=== PATIENT | male | born 1945 | race Caucasian/White ===

== ENCOUNTER 2018-06-23 06:42 | Day surgery (SDC) | payer OTHER ==
[2018-06-22 09:44] VITALS: BMI 34.1
[2018-06-23 09:03] VITALS: TEMP 98.2
[2018-06-23 09:34] VITALS: BP 136/78; PULSE 66
--- NOTE | 2018-06-26 17:49 | PATH ---
Surgical Pathology Report Patient Name: CYDNEY SANTA [facility]. Rec. #: [id number] /Age/Gender: 1945 (Age: 72) / M Account: [id number] Location: ASU-ENDOSCOPY Taken: 06/23/2018 Received: 06/23/2018 Reported: 06/26/2018 Physicians: Estiven Mejia M.D. Specimen(s) Received A: POLYP SIGMOID B: BX RIGHT COLON POLYP C: BX CECUM POLYP Clinical History Colon screening Postoperative diagnosis: Colon polyps, diverticulosis Final Diagnosis A. SIGMOID COLON, POLYPS, POLYPECTOMY: TUBULOVILLOUS ADENOMA. HYPERPLASTIC POLYP(S). B. COLON, RIGHT, POLYPS, POLYPECTOMY: TUBULAR ADENOMA(S). C. CECUM, POLYPS, POLYPECTOMY: TUBULAR ADENOMA(S). Electronically Signed Erika Salazar M.D. Gross Description A. Received in formalin labeled "polyps sigmoid colon," are 3 mejia, polypoid portions of soft tissue ranging from 0.7 x 0.4 x 0.3 cm to 1.4 x 1.3 x 0.6 cm. The largest polyp is bisected and the specimen is entirely submitted in 2 cassettes as follows: 1-two smaller polyps; 2-largest, bisected polyp. B. Received in formalin, labeled "polyps right colon" are 4 mejia, irregular portions of soft tissue averaging 0.2 cm. in greatest dimension. The specimens are submitted in toto in one cassette. C. Received in formalin, labeled "polyps cecum" are 5 mejia, irregular portions of soft tissue ranging from 0.1-0.2 cm. in greatest dimension. The specimens are submitted in toto in one cassette. 06/23/201806/23/2018
== END 2018-06-23 09:45 | disposition home or self-care (01) ==
LOC: JASU-ENDO 06:42
PROVIDERS: ATTEND Internal Medicine Gastroenterology
PROC: 0DBN8ZX Excision of Sigmoid Colon, Via Natural or Artificial Opening Endoscopic, Diagnostic (ICD-10-PCS; 2018-06-23)
PROC: 0DBH8ZX Excision of Cecum, Via Natural or Artificial Opening Endoscopic, Diagnostic (ICD-10-PCS; 2018-06-23)
PROC: 0DBK8ZX Excision of Ascending Colon, Via Natural or Artificial Opening Endoscopic, Diagnostic (ICD-10-PCS; principal; 2018-06-23 08:00)
DX: Z12.11 Encounter for screening for malignant neoplasm of colon (principal); D12.2 Benign neoplasm of ascending colon; D12.0 Benign neoplasm of cecum; D12.5 Benign neoplasm of sigmoid colon; K64.8 Other hemorrhoids; K57.30 Diverticulosis of large intestine without perforation or abscess without bleeding
CPT/HCPCS: 88305-TC

== ENCOUNTER 2018-12-19 12:08 | Emergency (ER) | payer OTHER | END 2018-12-19 17:58 | LOC: JER 12:08 ==

== ENCOUNTER 2019-04-28 20:42 | Emergency (ER) | payer OTHER ==
[2019-04-28 20:46] VITALS: TEMP 97; BMI 33.0
[2019-04-28] MEDS ORDERED: HYDROmorphone HCL CARPU-JECT 2 MG/1 ML DISP.SYRIN IVPUSH ONE (21:52)
[2019-04-28] MEDS ORDERED: SODIUM CHLORIDE 0.9% 500 ML INFUS.BAG IV ONE (21:54)
[2019-04-28 22:15] LABS: BASO % 0.7 % (0-2.0); HEMATOCRIT 42.7 % (35.4-49); HEMOGLOBIN 13.9 GM/dL (11.7-16.9); LYMPH % 13.6 % (8-40); MCHC 32.7 g/dl (32.0-35.9); MEAN CELL VOLUME 88.7 fl (80-96); MEAN PLT VOLUME 10.2 fl (7.5-11.1); MONO % 7.8 % (3.8-10.2); NEUT % 75.9 % (42.8-82.8); PLATELET COUNT 184 K/MM3 (134-434); RBC 4.81 M/mm3 (4.00-5.60); RDW 15.2 % (11.9-15.9); WHITE BLOOD COUNT 14.7 K/mm3 (4.0-10.0)
[2019-04-28 22:17] LABS: EPI CELLS 1.7 /HPF (0-5/HPF); HYALINE CASTS 3 /lpf (0-8); URINE APPEARANCE CLEAR; URINE BILIRUBIN NEGATIVE (NEGATIVE); URINE COLOR YELLOW; URINE GLUCOSE (UA) NEGATIVE (NEGATIVE); URINE KETONE NEGATIVE (NEGATIVE); URINE LEUK ESTERASE NEGATIVE (NEGATIVE); URINE NITRITE NEGATIVE (NEGATIVE); URINE PROTEIN 1+ (NEGATIVE); URINE RBC 2 /hpf (0-4); URINE WBC 2 /hpf (0-5)
--- NOTE | 2019-04-28 22:20 | PDOC ---
History of Present Illness - General Chief Complaint: Urinary Problem Stated Complaint: UTI SYX Time Seen by Provider: 04/28/19 21:15 History Source: Patient Exam Limitations: No Limitations - History of Present Illness Initial Comments: 04/28/19 Patient is a 73-year-old male with past medical history of prostatectomy secondary to prostate cancer 14 years ago, HTN, pre-DM, defibrillator, kidney stone on allopurinol, chronic back pain 2/2 disc dz, ureteral stricture, complaining of left lower quadrant abdominal pain, pain in the penis since about 5 PM. Patient states about 3 PM he started having drops only from the bladder and has been having severe, sharp penile pain now 10/10 associated with nausea, no vomiting. States he had this problem in the past but ever since he had a cystoscopy in February with a stent he has had no problems urinating since. URO: [facility] PMHX: as above PSOCHX: neg etoh, drug, cig ALL: NKDA GENERAL/CONSTITUTIONAL: [No fever or chills. No weakness. No weight change.] HEAD, EYES, EARS, NOSE AND THROAT: [No change in vision. No ear pain or discharge. No sore throat.] CARDIOVASCULAR: [No chest pain or shortness of breath.] RESPIRATORY: [No cough, wheezing, or hemoptysis.] GASTROINTESTINAL: [(+) nausea, (-) vomiting, diarrhea or constipation. No rectal bleeding.] GENITOURINARY: [No dysuria, frequency, or change in urination.] MUSCULOSKELETAL: [No joint or muscle swelling or pain. No neck or back pain.] SKIN AND BREASTS: [No rash or easy bruising.] NEUROLOGIC: [No headache, vertigo, loss of consciousness, or loss of sensation.] PSYCHIATRIC: [No depression or anxiety.] ENDOCRINE: [No increased thirst. No abnormal weight change.] HEMATOLOGIC/LYMPHATIC: [No anemia, easy bleeding, or history of blood clots.] ALLERGIC/IMMUNOLOGIC: [No hives or skin allergy. No latex allergy.] GENERAL: [The patient is awake, alert, and fully oriented, in moderate distress distress, pacing about.] HEAD: [Normal with no signs of trauma.] EYES: [Pupils equal, round and reactive to light, extraocular movements intact, sclera anicteric, conjunctiva clear.] ENT: [Ears normal, nares patent, oropharynx clear without exudates. Moist mucous membranes.] NECK: [Normal range of motion, supple without lymphadenopathy, JVD, or masses.] LUNGS: [Breath sounds equal, clear to auscultation bilaterally. No wheezes, and no crackles.] HEART: [Regular rate and rhythm, normal S1 and S2 without murmur, rub.] ABDOMEN: [Soft, (+) tenderness LLQ, normoactive bowel sounds. No guarding, no rebound. No masses, no CVA tenderness.] EXTREMITIES: [Normal range of motion, no edema. No clubbing or cyanosis. No cords, erythema, or tenderness.] NEUROLOGICAL: [Cranial nerves II through XII grossly intact. Normal speech, normal gait.] PSYCH: [Normal mood, normal affect.] SKIN: [Warm, Dry, normal turgor, no rashes or lesions noted.] Past History - Past Medical History Allergies/Adverse Reactions: Allergies Allergy/AdvReac Type Severity Reaction Status Date / Time No Known Allergies Allergy Verified 04/28/19 20:46 Home Medications: Ambulatory Orders Allopurinol 300 mg PO HS 06/22/18 Aspirin [ASA -] 325 mg PO HS 06/22/18 Atorvastatin Ca [Lipitor] 80 mg PO DAILY 06/22/18 Carvedilol [Coreg -] 12.5 mg PO HS 06/22/18 Cholecalciferol (Vitamin D3) [Vitamin D3] 1,000 unit PO HS 06/22/18 Ezetimibe [Zetia] 10 mg PO HS 06/22/18 Ramipril [Altace] 5 mg PO DAILY 06/22/18 Tamsulosin HCl [Flomax] 0.4 mg PO DAILY #7 cap.er.24h 04/29/19 Anemia: No Asthma: No Cancer: Yes (PROSTATE) Cardiac Disorders: Yes (ASHD S/P IN 2006 - STENTS, Irregular heartbeat) CVA: No COPD: No CHF: Yes Dementia: No Diabetes: Yes HTN: Yes Hypercholesterolemia: Yes Seizures: No Thyroid Disease: No - Surgical History Cardiac Surgery: Yes (STENTS - DEFIBRILLATOR 07) Neurologic Surgery: No Orthopedic Surgery: No - Psycho Social/Smoking Cessation Hx Smoking History: Never smoked Have you smoked in the past 12 months: No If you are a former smoker, when did you quit?: 1986 Hx Alcohol Use: No Drug/Substance Use Hx: No Substance Use Type: None Hx Substance Use Treatment: No *Physical Exam - Vital Signs Last Vital Signs Temp Pulse Resp BP Pulse Ox 97 F L 60 18 161/72 99 04/28/19 20:43 04/28/19 20:43 04/28/19 20:43 04/28/19 20:43 04/28/19 20:43 ED Treatment Course - LABORATORY CBC & Chemistry Diagram: 04/28/19 22:00 04/28/19 22:00 - RADIOLOGY Radiology Studies Ordered: Category Date Time Status ABDOMEN & PELVIS CT WITH CONTR [CT] Stat CT Scan 04/28/19 21:54 Ordered Medical Decision Making - Medical Decision Making 04/28/19 22:19 Patient is a 73-year-old male with past medical history of prostatectomy secondary to prostate cancer 14 years ago, HTN, pre-DM, defibrillator, kidney stone on allopurinol, chronic back pain 2/2 disc dz, ureteral stricture, complaining of left lower quadrant abdominal pain, pain in the penis since about 5 PM. Patient states about 3 PM he started having drops only from the bladder and has been having severe, sharp penile pain now 10/10 associated with nausea, no vomiting. States he had this problem in the past but ever since he had a cystoscopy in February with a stent he has had no problems urinating since. DDX: Renal colic, diverticulitis, bladder rupture Labs Pain meds, antinausea CT abdomen pelvis IV contrast. Reassess 04/29/19 01:13 Patient Full Name: ARINA LAMAS Patient Accession No: [id number] Patient : 1945 Reason for Exam: llq abd pain Referring Physician: Patient Name: CYDNEY SANTA THIS IS A PRELIMINARY REPORT FROM [facility] DATE OF SERVICE: 2019-04-28 23:25:19 IMAGES: [id number] EXAM: ABDOMEN \T\ PELVIS CT WITH CONTR HISTORY: Left lower quadrant pain COMPARISON: None. FINDINGS: Lung bases are clear. The visualized cardiac chambers are normal size and configuration. Pacemaker leads are noted. There are gallstones but no gallbladder inflammation or biliary duct dilation. There is moderate left hydronephrosis and perinephric inflammation secondary to an 11 mm distal left ureteral stone, slightly proximal to the UVJ. Additional tiny left renal stone is noted. Normal liver, pancreas, spleen, adrenal glands and right kidney. The stomach and abdominal small and large bowel are normal. 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 There is no significant retroperitoneal lymphadenopathy. The pelvic small and large bowel are notable only for sigmoid diverticulosis. The appendix is normal. The urinary bladder is normal. The prostate gland has been removed. No pelvic free fluid is identified. There is no significant pelvic lymphadenopathy. Small fat-containing bilateral inguinal hernias are noted. IMPRESSION: Moderate left hydronephrosis and perinephric inflammation secondary to an 11 mm distal left ureteral stone, slightly proximal to the UVJ. Additional tiny left renal stone. Gallstones. 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 One or more of the following dose reduction techniques were used: automated exposure control, adjustment of the mA and/or kV according to patient size, use of iterative reconstructive technique. THIS DOCUMENT HAS BEEN ELECTRONICALLY SIGNED Haile Tellez MD 04/29/2019 01:06 AIMEE Cruz Please call [facility] [phone] ([phone]) with questions. INTERPRETING RADIOLOGIST: Brandon Tellez MD Electronically Signed: Apr 29, 2019 01:08AM EST Patient states feeling improved has no pain currently. Patient is able to urinate has about 400 mL's in his urinal. Abdomen is soft and nontender. Discussed with patient options of pain medications states that he has Vicodin at home and he is able to obtain some Motrin. I discussed the physical exam findings, ancillary test results and final diagnoses with the patient. I answered all of the patient's questions. The patient was satisfied with the care received and felt comfortable with the discharge plan and treatment plan. The Patient agrees to follow up with the primary care physician within 24-72 hours. Discharge - Discharge Information Problems reviewed: Yes Clinical Impression/Diagnosis: Renal colic on left side Condition: Improved Disposition: HOME - Additional Discharge Information Prescriptions: Tamsulosin HCl [Flomax] 0.4 mg PO DAILY #7 cap.er.24h - Follow up/Referral - Patient Discharge Instructions Additional Instructions: Your Discharge Instructions: You must call primary care physician within 24 hours to arrange follow-up. Return to the Emergency Department with any new, persistent or worsening symptoms, for fever, chills, SOB, dizziness or any other concerning changes that may occur. You must follow-up with your urologist at [place] in 24 to 48 hours. Continue pain medications Vicodin and Motrin as needed for pain. However if your symptoms worsen, you have nausea, vomiting, fever, chills you must return to the emergency room immediately. - Post Discharge Activity
[2019-04-28] MEDS ORDERED: HYDROmorphone HCl 2 MG/ML VIAL ONE (22:22)
[2019-04-28 22:51] LABS: ALBUMIN 3.8 g/dl (3.4-5.0); BILIRUBIN,TOTAL 0.7 mg/dL (0.2-1); BLOOD UREA NITROGEN 24.1 mg/dL (7-18); CALCIUM 9.1 mg/dL (8.5-10.1); CREATININE 1.1 mg/dL (0.55-1.3); POTASSIUM 4.8 mmol/L (3.5-5.1); TOT PROT 7.4 g/dl (6.4-8.2)
[2019-04-29] MEDS ORDERED: TAMSULOSIN HCL 0.4 MG CAP PO ONE (01:32)
[2019-04-29] MEDS ORDERED: TAMSULOSIN HCL 0.4 MG CAP ONE (01:55)
[2019-04-29 01:58] VITALS: BP 138/82; PULSE 88
== END 2019-04-29 02:00 | disposition home or self-care (01) ==
LOC: JER 20:42
PROC: 3E033NZ Introduction of Analgesics, Hypnotics, Sedatives into Peripheral Vein, Percutaneous Approach (ICD-10-PCS; principal; 2019-04-28)
DX: N13.2 Hydronephrosis with renal and ureteral calculous obstruction (principal); Z87.442 Personal history of urinary calculi; I25.10 Atherosclerotic heart disease of native coronary artery without angina pectoris; I11.0 Hypertensive heart disease with heart failure; I50.9 Heart failure, unspecified; Z95.5 Presence of coronary angioplasty implant and graft; I25.2 Old myocardial infarction; E11.9 Type 2 diabetes mellitus without complications; E78.00 Pure hypercholesterolemia, unspecified; Z85.46 Personal history of malignant neoplasm of prostate; Z90.79 Acquired absence of other genital organ(s)
CPT/HCPCS: 36415; 74177-TC; 80053; 81003; 85025; 87086; 87186; 99283-25